=== PATIENT | female | born 1950 | race Caucasian/White ===

== ENCOUNTER 2024-05-24 08:35 | Emergency (ER) | payer MEDICARE, MEDICAID, SELFPAY ==
--- NOTE | ~2024-05-24 | XR_ITS ---
EXAMINATION: XR CHEST CLINICAL INFORMATION: Chest wall pain COMPARISON: None available. TECHNIQUE: 2 views of the chest were obtained. FINDINGS: No airspace consolidation or pneumothorax seen. Minimal linear atelectatic change observed toward the left base. Slight elevation of left diaphragm. There is small blunting in the costophrenic sulci, suggesting small effusions or pleural reactions. Hilar regions and pulmonary vascularity appear unremarkable. Old posttraumatic changes of the proximal left humerus. XR/XR chest 2V IMPRESSION: Minimal linear atelectatic changes. Small posterior sulcus effusions or pleural reactions. Electronically signed by: Daljit Costa MD 05/24/2024 02:47 PM EDT
--- NOTE | ~2024-05-24 | CT_ITS ---
EXAMINATION: CT CERVICAL SPINE WITHOUT CONTRAST CLINICAL INFORMATION: Trauma. Pain COMPARISON: None available. TECHNIQUE: Thin section axial images with sagittal and coronal reformats. This CT examination was performed using dose optimization techniques as appropriate, variously including the following: *Automated exposure control *Adjustment of mA and/or kV according to patient size (this includes techniques or standardized protocols for targeted exams where dose is matched to indication/reason for exam; i.e. extremities or head) *Use of iterative reconstruction technique DLP: 265 mGy-cm FINDINGS: There is advanced disc space narrowing C4-5, C5-6 and C6-7 with anterior and posterior spurs. No fracture or destructive process. No encroachment on the spinal canal. Prevertebral soft tissues are normal. CT/CT cervical spine wo IV con IMPRESSION: Multilevel degenerative change but no fracture or acute findings. Fleischner guidelines were followed. Electronically signed by: Jose Armando Tran MD 05/24/2024 11:02 AM EDT
--- NOTE | ~2024-05-24 | XR_ITS ---
EXAMINATION: XR LUMBOSACRAL SPINE CLINICAL INFORMATION: Back pain COMPARISON: None available. TECHNIQUE: Three views of the lumbosacral spine. FINDINGS: Normal alignment and lumbar lordosis. Prominent facet arthropathy, most severe at L5-S1. Intervertebral disc heights are preserved. No fracture. XR/XR lumbar spine 2-3V IMPRESSION: Prominent facet arthropathy, most severe at L5-S1. No acute osseous abnormality. Electronically signed by: Augustine Hinton MD 05/24/2024 02:26 PM EDT
--- NOTE | ~2024-05-24 | CT_ITS ---
EXAMINATION: CT HEAD WITHOUT CONTRAST CLINICAL INFORMATION: Head trauma COMPARISON: None available. TECHNIQUE: Contiguous axial imaging was performed from the skull base to vertex without intravenous administration of contrast. This CT examination was performed using dose optimization techniques as appropriate, variously including the following: *Automated exposure control *Adjustment of mA and/or kV according to patient size (this includes techniques or standardized protocols for targeted exams where dose is matched to indication/reason for exam; i.e. extremities or head) *Use of iterative reconstruction technique DLP: 669 mGy-cm FINDINGS: There is prominence to the sulci and ventricles with disproportionate distention of the ventricles. Normal pressure hydrocephalus could have such an appearance so please correlate clinically. There appears to be a small old right internal capsule obtained. There is no hemorrhage or extra-axial collection or mass. Perinephric calvarium is intact. CT/CT head/brain wo IV con IMPRESSION: Involutional changes with asymmetric ventricular distention. No acute findings. Electronically signed by: Jose Armando Tran MD 05/24/2024 10:59 AM EDT
--- NOTE | 2024-05-24 08:52 | ECG_ITS ---
Test Reason : CHEST PAIN Blood Pressure : / mmHG Vent. Rate : 071 BPM Atrial Rate : 071 BPM P-R Int : 150 ms QRS Dur : 084 ms QT Int : 394 ms P-R-T Axes : 044 002 041 degrees QTc Int : 428 ms Normal sinus rhythm Possible Anterior infarct , age undetermined Abnormal ECG No previous ECGs available Referred By: Nato Williamson Electronically Signed By:KAISER FRANCO
[2024-05-24 08:58] VITALS: BP 117/83; PULSE 77; RESP 18; TEMP 36.6; O2SAT 93; BMI 26.6
--- NOTE | 2024-05-24 08:58 | ED.FALL ---
HPI - Fall General Chief Complaint: Fall Stated Complaint: UNWIT FALL.BACK/HEAD PAIN,-THINNERS,FROM FACILITY Time Seen by Provider: 05/24/24 08:40 Source: patient and EMS Mode of arrival: EMS Limitations: no limitations History of Present Illness HPI Narrative: This is a 74 patient from assisted living after a fall. Patient has history of hypertension, hypothyroidism, osteoporosis COPD and bipolar disorder. Patient has history of falls she thinks she tripped she has morning. There is no LOC no chest pain or shortness of breath. MD complaint: fall Onset (ago): hour(s) (1) Fall from: standing Fall witnessed: no Place fall occurred: other (Assisting living) Loss of consciousness: none Prolonged down time: no Symptoms prior to fall: none Context: tripped/slipped Related Data Home Medications ?Medication ?Instructions ?Recorded ?Confirmed acetaminophen 500 mg tablet 1,000 mg PO Q8H PRN Pain (Scale 05/24/24 05/24/24 Score 1-3) albuterol sulfate 90 mcg/actuation 2 inh inhalation Q6H PRN Wheeze 05/24/24 05/24/24 aerosol inhaler alendronate 70 mg tablet 70 mg PO QWEEK 05/24/24 05/24/24 calcium 650 mg-vitamin D3 12.5 1 tab PO BID 05/24/24 05/24/24 mcg-vitamin K 40 mcg chewable tablet (Viactiv) carbidopa ER 50 mg-levodopa 200 mg 1 tab PO BID 05/24/24 05/24/24 tablet,extended release escitalopram oxalate 20 mg tablet 20 mg PO DAILY 05/24/24 05/24/24 famotidine 20 mg tablet 20 mg PO BEDTIME 05/24/24 05/24/24 lamotrigine 100 mg tablet 100 mg PO BEDTIME 05/24/24 05/24/24 lamotrigine 150 mg tablet 150 mg PO DAILY 05/24/24 05/24/24 latanoprost 0.005 % eye drops 1 drp ophthalmic (eye) BEDTIME 05/24/24 05/24/24 lidocaine 5 % topical patch 1 patch transdermal DAILY 05/24/24 05/24/24 magnesium oxide 400 mg (241.3 mg 100 mg PO DAILY 05/24/24 05/24/24 magnesium) tablet multivitamin 1 tab PO DAILY 05/24/24 05/24/24 naproxen 375 mg tablet 375 mg PO BID PRN Pain 05/24/24 05/24/24 polyethylene glycol 3350 17 17 g PO DAILY 05/24/24 05/24/24 gram/dose oral powder primidone 50 mg tablet 50 mg PO BEDTIME 05/24/24 05/24/24 risperidone 3 mg tablet 3 mg PO BEDTIME 05/24/24 05/24/24 sennosides 8.6 mg tablet (senna) 8.6 mg PO 3XW 05/24/24 05/24/24 simvastatin 10 mg tablet 10 mg PO BEDTIME 05/24/24 05/24/24 tiotropium bromide 18 mcg capsule 1 cap inhalation DAILY 05/24/24 05/24/24 with inhalation device (Spiriva with HandiHaler) trospium 20 mg tablet 20 mg PO BID 05/24/24 05/24/24 Allergies Allergy/AdvReac Type Severity Reaction Status Date / Time No Known Allergies Allergy Verified 05/24/24 09:06 Review of Systems ENT: Reports system reviewed and no additional complaints, except as documented Respiratory: Respiratory: Reports no additional respiratory complaints [facility] Past Medical History [facility] Narrative: Osteoporosis, hypertension, hypothyroidism, COPD, GERD Social History Social History Smoked in Last 30 Days: No Use of substances other than those prescribed or required for medical reasons: No Advance Directives: No Advance Directives Information Provided: Yes Physical Exam Vital Signs: Vital Signs: Last Vital Signs Temp 97.8 F 05/24/24 08:58 Pulse 77 05/24/24 08:58 Resp 18 05/24/24 08:58 BP 117/83 05/24/24 08:58 Pulse Ox 93 05/24/24 08:58 O2 Del Method Room Air 05/24/24 08:58 BMI result Body Mass Index 26.6 She looks well she is not toxic-appearing Const: General: cooperative, comfortable and no acute distress Nutritional Appearance: malnourished Orientation/consciousness: patient oriented x3 HEENT: Head: Yes normal to inspection General nose exam: Normal external nose present Face and sinus: Yes normal facial exam Mouth: Normal oral and palatal mucosa present Throat: Yes posterior oropharynx normal Neck: Other: C-collar on Neck: Yes normal visual inspection Resp: Effort & Inspection: normal respiratory effort and able to speak in complete sentences Cardio: Jugular venous distension: no JVD Rate: regular rate Rhythm: regular rhythm GI: Inspection: Yes normal to inspection Palpation (GI): Soft to palpation Auscultation: normal bowel sounds Skin: General skin exam: no rashes or lesions noted and elasticity normal Lesions: no lesions Neuro: General: patient oriented x3 Cranial nerves: Yes CN's II-XII intact bilaterally Coordination: [id number] test normal Course Reevaluation(s) Reevaluation #1: remain stable imaging negative including head ct and cspine, CXr and LS spine ,we are waiting for PT eval Time: 14:54 Reevaluation #2: Seen by PT, lead case manager discussed with the daughter, the consensus was that the patient should go back to the assisted living, patient refusing rehab. Time: 15:49 Medications Administered Discontinued Medications Generic Name Dose Route Start Last Admin Trade Name Freq PRN Reason Stop Dose Admin Acetaminophen 975 mg 05/24/24 11:14 05/24/24 11:44 Acetaminophen 325 Mg Tablet PO 05/24/24 11:15 975 mg ONCE ONE Administration Medical Decision Making Medical Decision Making [facility] Narrative: Patient presented after a fall we will obtain imaging EKG Differential Diagnosis Differential Diagnoses: The differential diagnosis associated with the presentation includes Subdural hematoma/epidural hematoma/cervical spine fracture/arrhythmia Admission/Observation Consideration of admission/observation: Escalation of care including admission/observation considered Lab Data [facility] Lab Attestation statement: I reviewed the patient's lab results. 05/24/24 09:27 05/24/24 09:27 Labs: Lab Results 05/24/24 Range/Units 09:27 WBC 5.8 (4.8-10.8) X10*3/uL RBC 4.07 L (4.20-5.50) X10*6/uL Hgb 12.7 (12.0-16.0) g/dl Hct 39.0 (37.0-47.0) % MCV 95.8 (80.0-98.0) fL MCH 31.2 (27.0-33.0) pg MCHC 32.6 (31.0-35.0) g/dl RDW 13.4 (11.0-16.0) % Plt Count 300 (160-400) X10*3/uL MPV 8.9 L (9.4-12.3) fL Immature Gran % (Auto) 0.9 H (0.0-0.4) % Neut % (Auto) 77.9 H (45-73) % Lymph % (Auto) 11.7 L (20-40) % [place] % (Auto) 6.7 (2-11) % Eos % (Auto) 2.1 (0-4) % Baso % (Auto) 0.7 (0-2) % Lymph # (Auto) 0.7 L (1.2-4.9) X10*3/uL [place] # (Auto) 0.4 (0.1-1.2) X10*3/uL Eos # (Auto) 0.1 (0.0-0.4) X10*3/uL Baso # (Auto) 0.0 (0.0-0.2) X10*3/uL Abs Immat Gran (auto) 0.05 H (0.00-0.03) X10*3/uL Absolute Neuts (auto) 4.5 (2.0-8.3) x10*3/uL Absolute Nucleated RBC 0.000 (0.0-0.012) X10*3/uL Nucleated RBC % (auto) 0.0 (0.0-0.2) /100WBC Sodium 139 (135-145) mmol/L Potassium 4.4 (3.3-5.1) mmol/L Chloride 107 (96-108) mmol/L Carbon Dioxide 26 (22-29) mmol/L Anion Gap 10 L (12-20) BUN 16 (9-16) mg/dL Creatinine 0.80 (0.5-1.4) mg/dL Estim Creat Clear Calc 58.8 Estimated GFR > 60 Random Glucose 98 (60-115) mg/dL Calcium 9.0 (8.4-10.2) mg/dL Total Bilirubin 0.3 (0.0-1.0) mg/dL AST 14 (5-31) U/L ALT < 5 (0-31) U/L Alkaline Phosphatase 67 (39-117) U/L Troponin I High Sens < 2.7 (<3.5-17.0) ng/L Total Protein 6.2 L (6.5-8.0) g/dL Albumin 3.9 (3.5-5.0) g/dL Independent Interpretation I performed an independent interpretation of an: EKG Interpretation: Normal sinus rhythm rate [address]-T changes EKG was reviewed interpreted by me Radiology Impression Discussion of test interpretation with radiology: I have reviewed the radiologist's reading. Independent Historian Clinical information obtained from an independent historian. History obtained from or confirmed by: Other (daughter) Discharge Plan Discharge Clinical Impression: Fall in elderly patient, Gait instability Patient Disposition: Still a Patient Instructions: Fall Prevention (ED) Prescriptions: No Action latanoprost 0.005 % drops 1 drp ophthalmic (eye) BEDTIME lamotrigine 150 mg tablet 150 mg PO DAILY alendronate 70 mg tablet 70 mg PO QWEEK Rx Instructions: Take on Wednesday carbidopa-levodopa 50-200 mg tablet extended release 1 tab PO BID famotidine 20 mg tablet 20 mg PO BEDTIME lamotrigine 100 mg tablet 100 mg PO BEDTIME escitalopram oxalate 20 mg tablet 20 mg PO DAILY multivitamin Tablet 1 tab PO DAILY primidone 50 mg tablet 50 mg PO BEDTIME sennosides [senna] 8.6 mg Tablet 8.6 mg PO 3XW Rx Instructions: Take Wednesday, Wednesday, Wednesday naproxen 375 mg Tablet 375 mg PO BID PRN (Reason: Pain) simvastatin 10 mg tablet 10 mg PO BEDTIME acetaminophen 500 mg tablet 1,000 mg PO Q8H PRN (Reason: Pain (Scale Score 1-3)) risperidone 3 mg tablet 3 mg PO BEDTIME magnesium oxide 400 mg (241.3 mg magnesium) tablet 100 mg PO DAILY lidocaine 5 % Adhesive Patch,Medicated 1 patch transdermal DAILY polyethylene glycol 3350 17 gram/dose powder 17 g PO DAILY albuterol sulfate 90 mcg/actuation HFA aerosol inhaler 2 inh inhalation Q6H PRN (Reason: Wheeze) tiotropium bromide [Spiriva with HandiHaler] 18 mcg capsule, w/inhalation device 1 cap inhalation DAILY trospium 20 mg tablet 20 mg PO BID calcium-vitamin D3-vitamin K [Viactiv] 650 mg-12.5 mcg-40 mcg tablet,chewable 1 tab PO BID Print Language: Burmese
[2024-05-24 09:31] LABS: MANUAL DIFF FLAG NO
[2024-05-24 09:32] LABS: Basophils Percent Auto 0.7 % (0-2); Eosinophils Absolute Auto 0.1 X10*3/uL (0.0-0.4); Eosinophils Percent Auto 2.1 % (0-4); Hemoglobin 12.7 g/dl (12.0-16.0); Imm Gran Abs Auto 0.05 X10*3/uL (0.00-0.03); Imm Gran Pct Auto 0.9 % (0.0-0.4); Lymphocytes Absolute Auto 0.7 X10*3/uL (1.2-4.9); Lymphocytes Percent Auto 11.7 % (20-40); Mean Corpuscular HGB Conc 32.6 g/dl (31.0-35.0); Mean Corpuscular Hemoglobin 31.2 pg (27.0-33.0); Mean Corpuscular Volume 95.8 fL (80.0-98.0); Mean Platelet Volume 8.9 fL (9.4-12.3); Monocytes Absolute Auto 0.4 X10*3/uL (0.1-1.2); Monocytes Percent Auto 6.7 % (2-11); Neutrophils Absolute Auto 4.5 x10*3/uL (2.0-8.3); Neutrophils Percent Auto 77.9 % (45-73); Platelet Count 300 X10*3/uL (160-400); Red Blood Count 4.07 X10*6/uL (4.20-5.50); Red Cell Distribution Width 13.4 % (11.0-16.0); White Blood Count 5.8 X10*3/uL (4.8-10.8)
[2024-05-24 09:53] LABS: Alanine Aminotransferase < 5 U/L (0-31); Albumin Level 3.9 g/dL (3.5-5.0); Alkaline Phosphatase 67 U/L (39-117); Anion Gap 10 (12-20); Aspartate Amino Transferase 14 U/L (5-31); Bilirubin Total 0.3 mg/dL (0.0-1.0); Blood Urea Nitrogen 16 mg/dL (9-16); Carbon Dioxide 26 mmol/L (22-29); Chloride 107 mmol/L (96-108); Creatinine Clr Calc Pharmacy 58.8; Estimated Glomerular Filt Rate > 60; Glucose Random 98 mg/dL (60-115); Potassium 4.4 mmol/L (3.3-5.1); Sodium 139 mmol/L (135-145); Total Protein 6.2 g/dL (6.5-8.0)
[2024-05-24 09:55] LABS: Troponin-I High Sensitivity < 2.7 ng/L (<3.5-17.0)
[2024-05-24] MEDS: Acetaminophen 325 MG TABLET 975 MG PO (11:44)
--- NOTE | 2024-05-24 15:11 | MHC.CM.ED ---
Addendum entered by Rody Luna 05/24/24 15:18: Per conversation w/pt's spouse Michael, pt is NOT returning to home and will return to the [facility]. Michael states he is recovering from an illness and isn't ready for her to return. CM to await PT eval Original Note: Received consult for assessment of d/c needs: pt is presently staying at the [facility] but will transition to her home w/spouse. She states she has PT coming to the [facility] but cannot recall the agency. Pt has a Pt states she has two dtrs that assist her as needed and 3 step children. She repeatedly states she does not wish to return to the [facility] it's not managed well and the food is terrible and lacking in nutrition and does not want to go to [facility]. PT eval is pending. Will call spouse to review PT eval once completed.
[2024-05-24 16:04] VITALS: BP 161/70; PULSE 79; RESP 16; TEMP 36.6; O2SAT 95
== END 2024-05-24 16:05 | disposition still patient (30) ==
PROVIDERS: Emergency Provider Emergency Medicine
DX: R26.89 Other abnormalities of gait and mobility (principal); R29.6 Repeated falls; I10 Essential (primary) hypertension; Z79.899 Other long term (current) drug therapy
CPT/HCPCS: 36415; 70450; 71046; 72100; 72125; 80053; 84484; 85025; 93005; 97162; 99285

== ENCOUNTER → 2024-05-24 08:52 | Outpatient (BNV) | payer MEDICARE, MEDICAID, SELFPAY | PROVIDERS: Emergency Provider Emergency Medicine; Visit Provider Internal Medicine | DX: R94.31 Abnormal electrocardiogram [ECG] [EKG] (principal) | CPT/HCPCS: 93010 ==

== ENCOUNTER 2024-05-26 13:06 | Emergency (ER) | payer MEDICARE, MEDICAID, SELFPAY ==
--- NOTE | ~2024-05-26 | CT_ITS ---
EXAMINATION: CT CERVICAL SPINE WITHOUT CONTRAST CLINICAL INFORMATION: Fall. Head strike. COMPARISON: CT cervical spine dated May 24, 2024. TECHNIQUE: Noncontrast computed tomography of the cervical spine was performed. This CT examination was performed using dose optimization techniques as appropriate, variously including the following: *Automated exposure control *Adjustment of mA and/or kV according to patient size (this includes techniques or standardized protocols for targeted exams where dose is matched to indication/reason for exam; i.e. extremities or head) *Use of iterative reconstruction technique DLP: 966 mGy-cm FINDINGS: Prevertebral soft tissue is normal in appearance. There is straightening of the cervical lordosis. There is grade 1 anterolisthesis of C3 in relation to C4. The posterior elements are anatomically aligned. The atlantooccipital articulations are intact. The C1-C2 relationship is anatomic. The dens is intact. Vertebral body heights are preserved. There is degenerative disc disease from C4-5 through C6-7. No acute cervical spine fracture. The lung apices are clear. The thyroid gland is normal in appearance. CT/CT cervical spine wo IV con IMPRESSION: No acute osseous cervical spine abnormality. Cervical spondylosis as described. Fleischner guidelines were followed. Electronically signed by: Piotr Sahni DO 05/26/2024 03:25 PM EDT
--- NOTE | ~2024-05-26 | XR_ITS ---
EXAMINATION: XR HUMERUS, RIGHT CLINICAL INFORMATION: Pain. Injury. COMPARISON: None available. TECHNIQUE: AP and lateral views of the right humerus. FINDINGS / XR/XR humerus RT IMPRESSION: There is a comminuted, markedly displaced, overriding fracture involving the mid aspect of the right humerus. The overlying soft tissue is moderately swollen. The visualized right lung is clear. Electronically signed by: Piotr Sahni DO 05/26/2024 03:33 PM EDT
--- NOTE | ~2024-05-26 | XR_ITS ---
EXAMINATION: XR SHOULDER, RIGHT CLINICAL INFORMATION: Right humerus fracture. COMPARISON: None available. TECHNIQUE: Two views of the right shoulder. FINDINGS / XR/XR shoulder RT min 2V IMPRESSION: As seen on the dedicated right humeral radiographs there is a comminuted, markedly displaced, overriding fracture involving the mid aspect of the right humerus. The humeral head appears to be articulating with the glenoid fossa, however, the provided views are suboptimal to accurately evaluate for dislocation. The acromioclavicular joint appears intact. The visualized right lung is clear. Electronically signed by: Piotr Sahni DO 05/26/2024 03:35 PM EDT
--- NOTE | ~2024-05-26 | CT_ITS ---
EXAMINATION: CT HEAD WITHOUT CONTRAST CLINICAL INFORMATION: Fall. Head strike. Pain. COMPARISON: CT head dated 05/24/2024. TECHNIQUE: Contiguous axial imaging was performed from the skull base to vertex without intravenous administration of contrast. This CT examination was performed using dose optimization techniques as appropriate, variously including the following: *Automated exposure control *Adjustment of mA and/or kV according to patient size (this includes techniques or standardized protocols for targeted exams where dose is matched to indication/reason for exam; i.e. extremities or head) *Use of iterative reconstruction technique DLP: 966 mGy-cm FINDINGS: There is a small focus of increased density within the left frontal lobe laterally seen best on image #61/84, series #3. This area of increased density was not seen on the prior examination from 2 days earlier. Although this may represent artifact, a very small parenchymal bleed cannot be excluded. There is no evidence of acute/subacute cerebral or cerebellar infarction. There is mild microvascular ischemic change. No mass effect or midline shift. No extra-axial fluid collection. No hydrocephalus. The orbits are normal in appearance. The visualized paranasal sinuses are clear. Mastoid air cells are clear. CT/CT head/brain wo IV con IMPRESSION: There is a small focus of increased density within the left frontal lobe laterally seen best on image #61/84, series #3. This area of increased density was not seen on the prior examination from 2 days earlier. Although this may represent artifact, a very small parenchymal bleed cannot be excluded. This critical result was discussed with Cristina Garnica at 3:28 PM on 05/26/2024 and it was ascertained that the content and urgency of the report was understood at the time of direct communication. Electronically signed by: Piotr Sahni DO 05/26/2024 03:28 PM EDT
[2024-05-26 13:12] VITALS: BP 123/87; PULSE 111; PULSE 74; RESP 18; TEMP 36.6; O2SAT 95; O2SAT 97; BMI 25.3
--- NOTE | 2024-05-26 13:22 | ED_ITS ---
HPI - General Adult General Chief complaint: Fall Stated complaint: FALL,RT SHLDR PAIN,MULT RECENT FALLS PER EMS Time Seen by Provider: 05/26/24 13:22 Source: patient and EMS Mode of arrival: EMS Limitations: no limitations History of Present Illness ED Provider: Cristina Garnica PA-C HPI narrative: Patient is a 74 year old assigned female at with a history of hypertension, hypothyroidism, osteoporosis, COPD, and bipolar disorder presenting to the emergency department today with right upper arm pain after a fall. Patient states that she was using her walker, ran into something with it, and fell, landing on her right arm. Patient denies any dizziness, lightheadedness, abdominal pain, nausea, vomiting, fever, chills, blurry vision, double vision, loss of vision, chest pain, difficulty breathing, shortness of breath, back pain, night sweats, pain with urination, increased urinary frequency, increased urinary urgency, blood in her urine or stool, syncope or a near syncopal episode, bowel incontinence, bladder incontinence, or any other complaints at this time. Relieving factors: immobilization Exacerbating factors: movement Associated symptoms: denies other symptoms Treatments prior to arrival: none Related Data Home Medications ?Medication ?Instructions ?Recorded ?Confirmed acetaminophen 500 mg tablet 1,000 mg PO Q8H PRN Pain (Scale 05/24/24 05/24/24 Score 1-3) albuterol sulfate 90 mcg/actuation 2 inh inhalation Q6H PRN Wheeze 05/24/24 05/24/24 aerosol inhaler alendronate 70 mg tablet 70 mg PO QWEEK 05/24/24 05/24/24 calcium 650 mg-vitamin D3 12.5 1 tab PO BID 05/24/24 05/24/24 mcg-vitamin K 40 mcg chewable tablet (Viactiv) carbidopa ER 50 mg-levodopa 200 mg 1 tab PO BID 05/24/24 05/24/24 tablet,extended release escitalopram oxalate 20 mg tablet 20 mg PO DAILY 05/24/24 05/24/24 famotidine 20 mg tablet 20 mg PO BEDTIME 05/24/24 05/24/24 lamotrigine 100 mg tablet 100 mg PO BEDTIME 05/24/24 05/24/24 lamotrigine 150 mg tablet 150 mg PO DAILY 05/24/24 05/24/24 latanoprost 0.005 % eye drops 1 drp ophthalmic (eye) BEDTIME 05/24/24 05/24/24 lidocaine 5 % topical patch 1 patch transdermal DAILY 05/24/24 05/24/24 magnesium oxide 400 mg (241.3 mg 100 mg PO DAILY 05/24/24 05/24/24 magnesium) tablet multivitamin 1 tab PO DAILY 05/24/24 05/24/24 naproxen 375 mg tablet 375 mg PO BID PRN Pain 05/24/24 05/24/24 polyethylene glycol 3350 17 17 g PO DAILY 05/24/24 05/24/24 gram/dose oral powder primidone 50 mg tablet 50 mg PO BEDTIME 05/24/24 05/24/24 risperidone 3 mg tablet 3 mg PO BEDTIME 05/24/24 05/24/24 sennosides 8.6 mg tablet (senna) 8.6 mg PO 3XW 05/24/24 05/24/24 simvastatin 10 mg tablet 10 mg PO BEDTIME 05/24/24 05/24/24 tiotropium bromide 18 mcg capsule 1 cap inhalation DAILY 05/24/24 05/24/24 with inhalation device (Spiriva with HandiHaler) trospium 20 mg tablet 20 mg PO BID 05/24/24 05/24/24 Allergies Allergy/AdvReac Type Severity Reaction Status Date / Time No Known Allergies Allergy Verified 05/26/24 13:13 Review of Systems Constitutional: Constitutional: Reports no additional constitutional complaints, Denies chills, Denies fever(s) and Denies night sweats Eyes: Eyes: Reports no additional eye complaints, Denies blurry vision, Denies change in vision, Denies diplopia, Denies eye discharge, Denies loss of vision and Denies eye pain ENT: Denies dizziness Cardiovascular: Cardiovascular: Reports no additional cardiovascular complaints, Denies chest pain, Denies lightheadedness, Denies Loss of Consciousness and Denies dyspnea Respiratory: Respiratory: Reports no additional respiratory complaints and Denies dyspnea Gastrointestinal: Gastrointestinal: Reports no additional gastrointestinal complaints, Denies abdominal pain, Denies melena, Denies hematochezia, Denies change in bowel habits and Denies change in stool character Genitourinary: Genitourinary: Denies hematuria, Denies urinary frequency, Denies dysuria, Denies urinary incontinence, Denies urinary hesitancy and Denies urinary urgency Musculoskeletal: Musculoskeletal: Reports no additional musculoskeletal complaints, Denies numbness and Denies tingling Comments: right arm pain Neurologic: Denies dizziness, Denies loss of vision, Denies numbness and Denies tingling Psychiatric: Psychiatric: Reports no additional psychiatric complaints Endocrine: Endocrine: Reports no additional endocrine complaints Hematologic/Lymphatic: Hematologic/Lymphatic: Reports no additional hematologic/lymphatic complaints Allergic/Immunologic: Allergic/Immunologic: Reports no additional allergic/immunologic complaints PMFSH Past Medical History Attestation statement: The following information was validated with the patient. Source: old records reviewed and nursing notes reviewed Social History Social History Smoked in Last 30 Days: No Use of substances other than those prescribed or required for medical reasons: No Advance Directives: Yes Advance Directives on File: Yes Advance Directives Date on File: 05/25/24 Do you have a plan to hurt others: No Plan Physical Exam ED Vital Signs: Vital Signs - 24 hr 05/26/24 13:12 05/26/24 15:48 Temperature 97.9 F 97.9 F Pulse Rate 111 H 66 Respiratory Rate 18 18 Blood Pressure 123/87 189/87 H Pulse Oximetry 95 95 Oxygen Delivery Method Room Air Room Air BMI result Body Mass Index 25.3 Const General: cooperative, no acute distress, alert and awake Nutritional Appearance: well nourished Orientation/consciousness: patient oriented x3 Limitations: no limitations [facility] Head: Yes normal to inspection and Yes atraumatic Ears: hearing grossly normal bilaterally and external ears normal General nose exam: Normal external nose present, no nasal discharge noted and no epistaxis Face and sinus: Yes normal facial exam, No abrasion and No laceration Mouth: Normal oral and palatal mucosa present, no drooling and no muffled voice Eyes General: appearance normal, both eyes and all related structures Periorbital: periorbital findings normal Eyelids: Yes eyelids normal Conjunctivae: conjunctivae normal Pupils: Equal, round and reactive pupils present EOM: EOMs intact bilaterally Neck Neck: Yes normal visual inspection, Yes full ROM and Yes no lymphadenopathy Chest Chest palpation & inspection: normal inspection of the chest Resp Effort & Inspection: normal respiratory effort and able to speak in complete sentences GI Inspection: Yes normal to inspection Neuro General: patient oriented x3 and moves all extremities Cranial nerves: Yes Equal, round and reactive pupils present Cognition (Neuro): normal cognition Extrem Other: deformity present to the upper right arm pain with palpation and ROM of the right upper extremity General: Yes capillary refill normal Psych Appearance: grossly normal Mental Status: mental status grossly normal Affect: normal affect Attitude: cooperative Thought process: Normal thought process present Thought content: Normal thought content present Insight: Good insight present (Psych) Medications Administered Discontinued Medications Generic Name Dose Route Start Last Admin Trade Name Rina PRN Reason Stop Dose Admin Oxycodone HCl 10 mg 05/26/24 14:55 05/26/24 15:25 Oxycodone Hcl Immed Release 5 Mg Tablet PO 05/26/24 14:56 10 mg ONCE ONE Administration Procedures Orthopedic Splinting/Casting Injury #1: Side: right Upper Extremity Injury Location: upper arm Upper Extremity Immobilizer: sling/shoulder immobilizer Medical Decision Making Medical Decision Making MDM Narrative: Patient is a 74 year old assigned female at with a history of hypertension, hypothyroidism, osteoporosis, COPD, and bipolar disorder presenting to the emergency department today with right upper arm pain after a fall. Patient's physical exam was as noted in the physical exam portion of this note. Patient's right humerus and shoulder x-ray showed a displaced right humerus fracture. I spoke to the orthopedic team who recommended the patient's right arm be placed in a sling and have her follow up out patient. Patient's head CT showed a new increased density within the left frontal lobe that may represent a parenchymal bleed. I called and spoke to Dr. Jorgensen, the trauma surgeon, at [facility], who agreed to transfer to the [facility] ED. Patient's right upper extremity was placed in a sling without incident. Patient's hand PMS was intact prior to and after sling placement. I explained my physical exam findings as well as all test results to the patient. I answered all questions asked by the patient. Patient verbalized agreement and understanding with this treatment plan and transfer. Differential Diagnosis Differential Diagnoses: The differential diagnosis associated with the presentation includes Right humerus fracture Brain bleed Admission/Observation Consideration of admission/observation: Escalation of care including admission/observation considered Patient transferred to [facility] ED Consult Healthcare Provider Management of the patient was discussed with: Cooperative Manager (spoke to Dr. Jorgensen as noted in the MDM Rationale portion of this note.) Independent Interpretation I performed an independent interpretation of an: Plain X-Ray and CT Scan Interpretation: My interpretation is in agreement with the radiologist's impression of these imaging studies. EXAMINATION: CT CERVICAL SPINE WITHOUT CONTRAST CLINICAL INFORMATION: Fall. Head strike. COMPARISON: CT cervical spine dated May 24, 2024. TECHNIQUE: Noncontrast computed tomography of the cervical spine was performed. This CT examination was performed using dose optimization techniques as appropriate, variously including the following: *Automated exposure control *Adjustment of mA and/or kV according to patient size (this includes techniques or standardized protocols for targeted exams where dose is matched to indication/reason for exam; i.e. extremities or head) *Use of iterative reconstruction technique DLP: 966 mGy-cm FINDINGS: Prevertebral soft tissue is normal in appearance. There is straightening of the cervical lordosis. There is grade 1 anterolisthesis of C3 in relation to C4. The posterior elements are anatomically aligned. The atlantooccipital articulations are intact. The C1-C2 relationship is anatomic. The dens is intact. Vertebral body heights are preserved. There is degenerative disc disease from C4-5 through C6-7. No acute cervical spine fracture. The lung apices are clear. The thyroid gland is normal in appearance. CT/CT cervical spine wo IV con IMPRESSION: No acute osseous cervical spine abnormality. Cervical spondylosis as described. Fleischner guidelines were followed. Electronically signed by: Piotr Sahni DO 05/26/2024 03:25 PM EDT Dictated By: Piotr Sahni Jr, DO Signed By: Electronically signed by Piotr Sahni Jr, DO 05/26/24 1525 EXAMINATION: CT HEAD WITHOUT CONTRAST CLINICAL INFORMATION: Fall. Head strike. Pain. COMPARISON: CT head dated 05/24/2024. TECHNIQUE: Contiguous axial imaging was performed from the skull base to vertex without intravenous administration of contrast. This CT examination was performed using dose optimization techniques as appropriate, variously including the following: *Automated exposure control *Adjustment of mA and/or kV according to patient size (this includes techniques or standardized protocols for targeted exams where dose is matched to indication/reason for exam; i.e. extremities or head) *Use of iterative reconstruction technique DLP: 966 mGy-cm FINDINGS: There is a small focus of increased density within the left frontal lobe laterally seen best on image #61/84, series #3. This area of increased density was not seen on the prior examination from 2 days earlier. Although this may represent artifact, a very small parenchymal bleed cannot be excluded. There is no evidence of acute/subacute cerebral or cerebellar infarction. There is mild microvascular ischemic change. No mass effect or midline shift. No extra-axial fluid collection. No hydrocephalus. The orbits are normal in appearance. The visualized paranasal sinuses are clear. Mastoid air cells are clear. CT/CT head/brain wo IV con IMPRESSION: There is a small focus of increased density within the left frontal lobe laterally seen best on image #61/84, series #3. This area of increased density was not seen on the prior examination from 2 days earlier. Although this may represent artifact, a very small parenchymal bleed cannot be excluded. This critical result was discussed with Cristina Garnica at 3:28 PM on 05/26/2024 and it was ascertained that the content and urgency of the report was understood at the time of direct communication. Electronically signed by: Piotr Sahni DO 05/26/2024 03:28 PM EDT Dictated By: Piotr Sahni Jr, DO Signed By: Electronically signed by Piotr Sahni Jr, DO 05/26/24 1528 EXAMINATION: XR SHOULDER, RIGHT CLINICAL INFORMATION: Right humerus fracture. COMPARISON: None available. TECHNIQUE: Two views of the right shoulder. FINDINGS: XR/XR shoulder RT min 2V IMPRESSION: As seen on the dedicated right humeral radiographs there is a comminuted, markedly displaced, overriding fracture involving the mid aspect of the right humerus. The humeral head appears to be articulating with the glenoid fossa, however, the provided views are suboptimal to accurately evaluate for dislocat ion. The acromioclavicular joint appears intact. The visualized right lung is clear. Electronically signed by: Piotr Sahni DO 05/26/2024 03:35 PM EDT RP Dictated By: Piotr Sahni Jr, DO Signed By: Electronically signed by Piotr Sahni Jr, DO DD/ 1323 EXAMINATION: XR HUMERUS, RIGHT CLINICAL INFORMATION: Pain. Injury. COMPARISON: None available. TECHNIQUE: AP and lateral views of the right humerus. FINDINGS: XR/XR humerus RT IMPRESSION: There is a comminuted, markedly displaced, overriding fracture involving the mid aspect of the right humerus. The overlying soft tissue is moderately swollen. The visualized right lung is clear. Electronically signed by: Piotr Sahni DO 05/26/2024 03:33 PM EDT RP Dictated By: Piotr Sahni Jr, DO Signed By: Electronically signed by Piotr Sahni Jr, DO 05/26/24 1533 Radiology Impression Discussion of test interpretation with radiology: I have reviewed the radiologist's reading. Independent Historian Clinical information obtained from an independent historian. History obtained from or confirmed by: EMS (EMS provided additional history and confirmed the history provided by the patient.) Critical Care Time Critical Care Time Critical Care Time: Yes Total Critical Care Time: 44 Attestation: I spent 44 minutes of Critical Care Time with this patient. This does not include time spent on separately reported billable procedures. Discharge Plan Discharge Clinical Impression: Fracture, humerus, Brain bleed Patient Disposition: General Acute Hospital Transfer Details: [facility] ED - Dr. Jorgensen Prescriptions: No Action latanoprost 0.005 % drops 1 drp ophthalmic (eye) BEDTIME lamotrigine 150 mg tablet 150 mg PO DAILY alendronate 70 mg tablet 70 mg PO QWEEK Rx Instructions: Take on Wednesday carbidopa-levodopa 50-200 mg tablet extended release 1 tab PO BID famotidine 20 mg tablet 20 mg PO BEDTIME lamotrigine 100 mg tablet 100 mg PO BEDTIME escitalopram oxalate 20 mg tablet 20 mg PO DAILY multivitamin Tablet 1 tab PO DAILY primidone 50 mg tablet 50 mg PO BEDTIME sennosides [senna] 8.6 mg Tablet 8.6 mg PO 3XW Rx Instructions: Take Wednesday, Wednesday, Wednesday naproxen 375 mg Tablet 375 mg PO BID PRN (Reason: Pain) simvastatin 10 mg tablet 10 mg PO BEDTIME acetaminophen 500 mg tablet 1,000 mg PO Q8H PRN (Reason: Pain (Scale Score 1-3)) risperidone 3 mg tablet 3 mg PO BEDTIME magnesium oxide 400 mg (241.3 mg magnesium) tablet 100 mg PO DAILY lidocaine 5 % Adhesive Patch,Medicated 1 patch transdermal DAILY polyethylene glycol 3350 17 gram/dose powder 17 g PO DAILY albuterol sulfate 90 mcg/actuation HFA aerosol inhaler 2 inh inhalation Q6H PRN (Reason: Wheeze) tiotropium bromide [Spiriva with HandiHaler] 18 mcg capsule, w/inhalation device 1 cap inhalation DAILY trospium 20 mg tablet 20 mg PO BID calcium-vitamin D3-vitamin K [Viactiv] 650 mg-12.5 mcg-40 mcg tablet,chewable 1 tab PO BID Print Language: Iraqi
--- NOTE | 2024-05-26 14:36 | MHC.EDTECH ---
this tech placed a shoulder sling on pt as per PA orders, pt tolerated well
[2024-05-26] MEDS: oxyCODONE HCl Immed Release 5 MG TABLET 10 MG PO (15:25)
--- NOTE | 2024-05-26 15:44 | MHC.CM.ED ---
Received telephone call from George GIBSON. Patient is active with their agency. Return referral put in [facility] so they can follow for d/c needs.
[2024-05-26 15:48] VITALS: BP 189/87; PULSE 66; RESP 18; TEMP 36.6; O2SAT 95
[2024-05-26 15:59] VITALS: BP 180/80; PULSE 68; RESP 26; TEMP 36.6; O2SAT 94
[2024-05-26 15:59] LABS: MANUAL DIFF FLAG NO
[2024-05-26 16:08] LABS: Basophils Absolute Auto 0.1 X10*3/uL (0.0-0.2); Basophils Percent Auto 0.7 % (0-2); Eosinophils Absolute Auto 0.1 X10*3/uL (0.0-0.4); Eosinophils Percent Auto 0.8 % (0-4); Hematocrit 38.7 % (37.0-47.0); Imm Gran Abs Auto 0.05 X10*3/uL (0.00-0.03); Imm Gran Pct Auto 0.7 % (0.0-0.4); Lymphocytes Absolute Auto 0.6 X10*3/uL (1.2-4.9); Lymphocytes Percent Auto 7.6 % (20-40); Mean Corpuscular HGB Conc 33.6 g/dl (31.0-35.0); Mean Corpuscular Hemoglobin 31.6 pg (27.0-33.0); Mean Corpuscular Volume 94.2 fL (80.0-98.0); Mean Platelet Volume 8.9 fL (9.4-12.3); Monocytes Absolute Auto 0.4 X10*3/uL (0.1-1.2); Monocytes Percent Auto 4.8 % (2-11); Neutrophils Absolute Auto 6.2 x10*3/uL (2.0-8.3); Neutrophils Percent Auto 85.4 % (45-73); Platelet Count 302 X10*3/uL (160-400); Red Blood Count 4.11 X10*6/uL (4.20-5.50); Red Cell Distribution Width 13.2 % (11.0-16.0); White Blood Count 7.3 X10*3/uL (4.8-10.8)
[2024-05-26 16:16] LABS: Alanine Aminotransferase < 5 U/L (0-31); Albumin Level 4.2 g/dL (3.5-5.0); Alkaline Phosphatase 82 U/L (39-117); Anion Gap 12 (12-20); Aspartate Amino Transferase 15 U/L (5-31); Bilirubin Total 0.3 mg/dL (0.0-1.0); Blood Urea Nitrogen 12 mg/dL (9-16); Calcium 9.8 mg/dL (8.4-10.2); Carbon Dioxide 28 mmol/L (22-29); Chloride 104 mmol/L (96-108); Creatinine Clr Calc Pharmacy 58.8; Estimated Glomerular Filt Rate > 60; Glucose Random 110 mg/dL (60-115); Magnesium 1.9 mg/dL (1.6-2.6); Potassium 4.1 mmol/L (3.3-5.1); Sodium 140 mmol/L (135-145); Total Protein 6.6 g/dL (6.5-8.0)
[2024-05-26 16:17] LABS: Prothrombin Time 11.2 SEC (10.9-12.4)
[2024-05-26 16:20] LABS: Partial Thromboplastin Time 33.8 SEC (26.0-36.8)
--- NOTE | 2024-05-26 16:59 | PC.NURSE ---
Attempted to call [facility] ED for report, no answer after 10 min on hold.
[2024-05-26 17:25] VITALS: BP 180/80; PULSE 68; RESP 23; TEMP 36.6; O2SAT 94
== END 2024-05-26 17:27 | disposition short-term general hospital (02) ==
PROVIDERS: Physician Assistant Medical; Emergency Provider Internal Medicine
DX: S42.351A Displaced comminuted fracture of shaft of humerus, right arm, initial encounter for closed fracture (principal); S06.36AA Traumatic hemorrhage of cerebrum, unspecified, with loss of consciousness status unknown, initial encounter; W18.30XA Fall on same level, unspecified, initial encounter; Y93.9 Activity, unspecified; Y92.9 Unspecified place or not applicable; Y99.9 Unspecified external cause status; Z79.899 Other long term (current) drug therapy; M79.621 Pain in right upper arm; E83.00 Disorder of copper metabolism, unspecified; I10 Essential (primary) hypertension; E03.9 Hypothyroidism, unspecified
CPT/HCPCS: 36415; 70450; 72125; 73030; 73060; 80053; 83735; 85025; 85610; 85730; 99285

== ENCOUNTER 2024-07-21 09:46 | Emergency (ER) | payer MEDICARE, MEDICAID, SELFPAY ==
[2024-07-21] VITALS (9 sets, daily range): BP systolic 118–163; BP diastolic 64–91; PULSE 64–75; RESP 14–25; TEMP 36.2–37.1; O2SAT 93–96; BMI 25.2
--- NOTE | ~2024-07-21 | XR_ITS ---
EXAMINATION: XR HIP, LEFT CLINICAL INFORMATION: pain at hip COMPARISON: None available. TECHNIQUE: AP pelvis, and 2 views of the left hip. FINDINGS: Normal bony mineralization. No fracture, dislocation, or suspicious bone lesion. Bilateral hip joints are normal in appearance and alignment. No significant arthritis. Sacrum and SI joints appear normal. There is no discrete soft tissue abnormality. XR/XR hip LT w PEL1V IMPRESSION: No acute findings pelvis or left hip. Electronically signed by: Donnie Lanier MD 07/21/2024 01:42 PM EST
--- NOTE | ~2024-07-21 | CT_ITS ---
EXAMINATION: CT HEAD WITHOUT CONTRAST CLINICAL INFORMATION: Fall out of bed, head trauma. COMPARISON: 05/26/2024, 05/24/2024. TECHNIQUE: Contiguous axial imaging was performed from the skull base to vertex without intravenous administration of contrast. This CT examination was performed using dose optimization techniques as appropriate, variously including the following: *Automated exposure control *Adjustment of mA and/or kV according to patient size (this includes techniques or standardized protocols for targeted exams where dose is matched to indication/reason for exam; i.e. extremities or head) *Use of iterative reconstruction technique DLP: 708 mGy-cm FINDINGS: Evolving tiny subacute intraparenchymal hemorrhage left frontal lobe (series 5, image 20). This was seen in the more acute setting, 05/26/2024. No underlying significant mass effect, significant edema or sulcal effacement. No additional intra or extra-axial hemorrhage. No CT evidence of acute territorial infarct. No extra-axial collection. Ventricles are again noted to be somewhat prominent in comparison with sulcal prominence, a finding which is nonspecific but most likely related to central volume loss. There are mild patchy and confluent foci of periventricular white matter hypoattenuation, nonspecific but unchanged and likely on the basis of small vessel ischemia. No midline shift. Partial empty sella noted. Atheromatous calcification of the carotid siphons bilaterally. Globes and orbital contents image normally. No extracranial soft tissue abnormalities. The paranasal sinuses, mastoid air cells, and tympanic cavities are normally aerated. No suspicious bony abnormalities. CT/CT head/brain wo IV con IMPRESSION: 1. Evolving subacute tiny intraparenchymal hemorrhage left frontal pole. Minimal surrounding edema without underlying mass effect. This has evolved from 05/26/2024. 2. No additional intracranial hemorrhage or extra-axial fluid collection. No acute territorial infarct. 3. Stable prominence of the lateral and third ventricles, and unchanged mild white matter changes of small vessel ischemia. Electronically signed by: Donnie Lanier MD 07/21/2024 12:55 PM [facility] [place]
--- NOTE | ~2024-07-21 | CT_ITS ---
EXAMINATION: CT HEAD WITHOUT CONTRAST CLINICAL INFORMATION: Intraparenchymal bleed. COMPARISON: CT head performed July 21, 2024 at 10:20 AM. TECHNIQUE: Contiguous axial imaging was performed from the skull base to vertex without intravenous administration of contrast. This CT examination was performed using dose optimization techniques as appropriate, variously including the following: *Automated exposure control *Adjustment of mA and/or kV according to patient size (this includes techniques or standardized protocols for targeted exams where dose is matched to indication/reason for exam; i.e. extremities or head) *Use of iterative reconstruction technique DLP: 678 mGy-cm FINDINGS: A tiny subacute intraparenchymal hemorrhage within the left frontal lobe is unchanged compared with the prior study. No new intracranial hemorrhage. No evidence of acute/subacute territorial infarction. No extra-axial fluid collection. Ventricular size is unchanged. The orbits are symmetric and within normal limits. There is a partially empty sella turcica. Cerebellar tonsils are normally positioned. Visualized paranasal sinuses and mastoid air cells are clear. CT/CT head/brain wo IV con IMPRESSION: Evolving tiny subacute parenchymal hemorrhage within the left frontal pole, unchanged from prior study. No new intracranial abnormality. Electronically signed by: Piotr Sahni DO 07/21/2024 10:05 PM [facility] [place]
--- NOTE | ~2024-07-21 | CT_ITS ---
EXAMINATION: CT CERVICAL SPINE WITHOUT CONTRAST CLINICAL INFORMATION: Alexis out of bed, neck pain. COMPARISON: 05/26/2024. TECHNIQUE: Spiral CT of the cervical spine was performed in the axial plane from the skull base to the thoracic inlet without IV contrast. Sagittal, coronal, and thin section axial reformatted images were constructed from the axial data set. This CT examination was performed using dose optimization techniques as appropriate, variously including the following: *Automated exposure control *Adjustment of mA and/or kV according to patient size (this includes techniques or standardized protocols for targeted exams where dose is matched to indication/reason for exam; i.e. extremities or head) *Use of iterative reconstruction technique DLP: 708 mGy-cm FINDINGS: Alignment: -Mild levoconvex scoliosis centered at C7. -Mild reversal of the normal lordosis centered at C5. This is nonspecific. Degenerative type mild 2 mm anterolistheses of C2 on C3, and C3 on C4. Trace retrolisthesis C5 on C6. Craniocervical Junction/C1-C2 Articulations: -Intact and aligned. -Mild degenerative changes. Imaged Contents Posterior Fossa: Within normal limits. 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 Vertebral Bodies/Bones: -There are no fractures or compression deformities. There is no evidence of traumatic malalignment/subluxation. -No suspicious bone lesions. Sclerotic type endplate changes are present C4-5, C5-6, and C6-7. -Facets are normally aligned. -On the right, there is prominent facet hypertrophy and degeneration at C2-3. -On the left, there is prominent facet hypertrophy and degeneration at C3-4 and C4-5. -Uncinate spurring is present most prominent C4-5, C5-6, and C6-7. Discs: -Severe loss of disc height C5-6 and C6-7. -Mild loss of disc height at the other levels. Spinal Canal: -Patent. No large disc herniation or canal stenosis. Cervical Soft Tissues: -Prevertebral soft tissues appear normal. -No discrete thyroid lesions seen. -Moderate calcification of the carotid bulbs bilaterally. CT/CT cervical spine wo IV con IMPRESSION: 1. No CT evidence of acute cervical spine injury or fracture. 2. Moderate degenerative spondylosis most significant at C4-5 and C5-6 as described above. 3. 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 4. Additional ancillary findings as discussed in the body of the report. Electronically signed by: Donnie Lanier MD 07/21/2024 01:08 PM [facility]
--- NOTE | 2024-07-21 10:10 | ED.GENADULT ---
HPI - General Adult General Chief complaint: Fall Stated complaint: FALL Time Seen by Provider: 07/21/24 09:51 Source: patient Mode of arrival: EMS History of Present Illness ED Provider: Laura MULLER narrative: 74-year-old female who lives in an assisted living facility, brought in by EMS after she had attempted to get out of bed by rolling over and states that she fell out of the bed, she denies any use of chronic anticoagulation or loss consciousness. She does report some left hip pain. Related Data Home Medications ?Medication ?Instructions ?Recorded ?Confirmed acetaminophen 500 mg tablet 1,000 mg PO Q8H PRN Pain (Scale 05/24/24 05/24/24 Score 1-3) albuterol sulfate 90 mcg/actuation 2 inh inhalation Q6H PRN Wheeze 05/24/24 05/24/24 aerosol inhaler alendronate 70 mg tablet 70 mg PO QWEEK 05/24/24 05/24/24 calcium 650 mg-vitamin D3 12.5 1 tab PO BID 05/24/24 05/24/24 mcg-vitamin K 40 mcg chewable tablet (Viactiv) carbidopa ER 50 mg-levodopa 200 mg 1 tab PO BID 05/24/24 05/24/24 tablet,extended release escitalopram oxalate 20 mg tablet 20 mg PO DAILY 05/24/24 05/24/24 famotidine 20 mg tablet 20 mg PO BEDTIME 05/24/24 05/24/24 lamotrigine 100 mg tablet 100 mg PO BEDTIME 05/24/24 05/24/24 lamotrigine 150 mg tablet 150 mg PO DAILY 05/24/24 05/24/24 latanoprost 0.005 % eye drops 1 drp ophthalmic (eye) BEDTIME 05/24/24 05/24/24 lidocaine 5 % topical patch 1 patch transdermal DAILY 05/24/24 05/24/24 magnesium oxide 400 mg (241.3 mg 100 mg PO DAILY 05/24/24 05/24/24 magnesium) tablet multivitamin 1 tab PO DAILY 05/24/24 05/24/24 naproxen 375 mg tablet 375 mg PO BID PRN Pain 05/24/24 05/24/24 polyethylene glycol 3350 17 17 g PO DAILY 05/24/24 05/24/24 gram/dose oral powder primidone 50 mg tablet 50 mg PO BEDTIME 05/24/24 05/24/24 risperidone 3 mg tablet 3 mg PO BEDTIME 05/24/24 05/24/24 sennosides 8.6 mg tablet (senna) 8.6 mg PO 3XW 05/24/24 05/24/24 simvastatin 10 mg tablet 10 mg PO BEDTIME 05/24/24 05/24/24 tiotropium bromide 18 mcg capsule 1 cap inhalation DAILY 05/24/24 05/24/24 with inhalation device (Spiriva with HandiHaler) trospium 20 mg tablet 20 mg PO BID 05/24/24 05/24/24 Allergies Allergy/AdvReac Type Severity Reaction Status Date / Time lithium Allergy Unknown Verified 07/21/24 10:15 Review of Systems Review of Systems: Pertinent positives and negatives as stated in [facility] Past Medical History Source: nursing notes reviewed Social History Social History Advance Directives: Yes Advance Directives on File: Yes Advance Directives Date on File: 05/25/24 Do you have a plan to hurt others: No Plan Physical Exam ED Vital Signs: Vital Signs - 24 hr 07/21/24 10:10 07/21/24 12:16 Temperature 98.1 F 98.7 F Pulse Rate 72 65 Respiratory Rate 14 16 Blood Pressure 123/74 139/79 Pulse Oximetry 93 93 Oxygen Delivery Method Room Air Room Air BMI result Body Mass Index 25.2 VITAL SIGNS: Reviewed. GENERAL: Well developed, well nourished, in no acute distress. HEAD: Normocephalic/atraumatic EYES: PERRLA, EOMI EARS: Ext canals without abnormality NOSE: Nares patent bilateral OROPHARYNX: no oral lesions noted, posterior pharynx clear NECK: C-collar in place without midline cervical spine tenderness to palpation or step-offs noted LUNGS: Normal breath sounds. No adventitious sounds or accessory muscle use. CARDIOVASCULAR: Regular rate and rhythm without noted murmurs ABDOMEN: Soft, non-tender, non-distended with bowel sounds. PELVIS: stable, mild tenderness to the greater trochanter area of the left hip MUSCULOSKELETAL: No tenderness, deformities, or effusions noted on gross inspection. EXTREMITIES: No cyanosis, clubbing or edema. SKIN: Inspection of the skin reveals no rashes NEUROLOGIC: Alert and oriented x 4. Strength and sensation to light touch were grossly intact x 4. Medical Decision Making Medical Decision Making MDM Narrative: 74-year-old female with history and clinical presentation, DD DX: Mechanical fall and will rule out any intracranial hemorrhage or injury to the cervical spine and suspect soft tissue contusion at the left hip but will image to ensure no fractures. CT scan of cervical spine is negative for acute fracture or subluxation and C-collar was cleared. CT represents evolving subacute bleed And will discuss with neuro critical team at [facility], patient has no focal findings, and my interpretation of x-ray of the hip and pelvis is there is no evidence of acute fracture and otherwise my interpretation is in agreement with radiology's impression. 1405: Discussed with neuro critical attending at [facility] and states it is very tiny. Recommends a repeat in 6-8 hrs, if no change then could follow clinically in the outpatient setting. Patient placed on Q 2 hour neuro checks and ordered a scheduled CT scan of the head at 2030. 1416: Patient placed in physician observation because the patient needed more time for repeat imaging. At the time observation was started the patient's vital signs were stable, patient is alert and oriented, neuro: Nonfocal, CV RRR, lungs clear. Differential Diagnosis Differential Diagnoses: The differential diagnosis associated with the presentation includes see above Admission/Observation Consideration of admission/observation: Escalation of care including admission/observation considered see above Consult Healthcare Provider Management of the patient was discussed with: [employer] See above Independent Interpretation I performed an independent interpretation of an: CT Scan Interpretation: see above Radiology Impression Discussion of test interpretation with radiology: I have reviewed the radiologist's reading. Radiologist Impression: see above External Record Review External record reviewed: Prior outpatient radiology and Primary care record Critical Care Time Critical Care Time Critical Care Time: Yes Total Critical Care Time: 30 Attestation: I personally attest to this time spent taking care of the patient. Discharge Plan Discharge Clinical Impression: Fall, Intraparenchymal hemorrhage of brain Patient Disposition: Still a Patient Prescriptions: No Action latanoprost 0.005 % drops 1 drp ophthalmic (eye) BEDTIME lamotrigine 150 mg tablet 150 mg PO DAILY alendronate 70 mg tablet 70 mg PO QWEEK Rx Instructions: Take on Wednesday carbidopa-levodopa 50-200 mg tablet extended release 1 tab PO BID famotidine 20 mg tablet 20 mg PO BEDTIME lamotrigine 100 mg tablet 100 mg PO BEDTIME escitalopram oxalate 20 mg tablet 20 mg PO DAILY multivitamin Tablet 1 tab PO DAILY primidone 50 mg tablet 50 mg PO BEDTIME sennosides [senna] 8.6 mg Tablet 8.6 mg PO 3XW Rx Instructions: Take Wednesday, Wednesday, Wednesday naproxen 375 mg Tablet 375 mg PO BID PRN (Reason: Pain) simvastatin 10 mg tablet 10 mg PO BEDTIME acetaminophen 500 mg tablet 1,000 mg PO Q8H PRN (Reason: Pain (Scale Score 1-3)) risperidone 3 mg tablet 3 mg PO BEDTIME magnesium oxide 400 mg (241.3 mg magnesium) tablet 100 mg PO DAILY lidocaine 5 % Adhesive Patch,Medicated 1 patch transdermal DAILY polyethylene glycol 3350 17 gram/dose powder 17 g PO DAILY albuterol sulfate 90 mcg/actuation HFA aerosol inhaler 2 inh inhalation Q6H PRN (Reason: Wheeze) tiotropium bromide [Spiriva with HandiHaler] 18 mcg capsule, w/inhalation device 1 cap inhalation DAILY trospium 20 mg tablet 20 mg PO BID calcium-vitamin D3-vitamin K [Viactiv] 650 mg-12.5 mcg-40 mcg tablet,chewable 1 tab PO BID Print Language: Kazakh
--- NOTE | 2024-07-21 10:14 | MHC.CM.ED ---
Received notification patient is active with [facility]. Return referral made in [facility] so agency can follow. Continue to monitor for d/c needs.
--- NOTE | 2024-07-21 11:40 | PC.NURSE ---
patient resting quietly c collar in place
--- NOTE | 2024-07-21 11:41 | PC.NURSE ---
resp even and unlabored
--- NOTE | 2024-07-21 14:41 | PC.NURSE ---
patient noted to be alert and oriented x3, patient pupils equal and reactive. patient resting quietly bed.
--- NOTE | 2024-07-21 20:07 | MHC.EDTECH ---
This tech took over care of pt at 1900,rounded and introduced self to pt,vitals taken,BP is elevated ,RN made aware,pt is watching TV at this time,call trejo in reach
[2024-07-22 00:05] VITALS: BP 131/79; PULSE 75; RESP 18; TEMP 36.9; O2SAT 94
[2024-07-22 02:29] VITALS: BP 126/78; PULSE 83; RESP 18; TEMP 36.9; O2SAT 94
== END 2024-07-22 02:30 ==
PROVIDERS: Emergency Provider Emergency Medicine
DX: I61.9 Nontraumatic intracerebral hemorrhage, unspecified (principal); M25.552 Pain in left hip; M54.2 Cervicalgia; S79.912A Unspecified injury of left hip, initial encounter; W06.XXXA Fall from bed, initial encounter; Y93.9 Activity, unspecified; Y92.9 Unspecified place or not applicable; Y99.9 Unspecified external cause status; Z79.899 Other long term (current) drug therapy
CPT/HCPCS: 70450; 72125; 73502; 99284

== ENCOUNTER → 2024-07-21 10:08 | Outpatient (BNV) | payer MEDICARE, MEDICAID, SELFPAY | PROVIDERS: Emergency Provider Student in an Organized Health Care Education/Training Program; Visit Provider Radiology Diagnostic Radiology | DX: M25.552 Pain in left hip (principal); M47.812 Spondylosis without myelopathy or radiculopathy, cervical region; I61.8 Other nontraumatic intracerebral hemorrhage | CPT/HCPCS: 70450; 72125; 73502 ==